=== PATIENT | female | born 1990 | race Caucasian/White ===

== ENCOUNTER → 2017-04-11 | Emergency (ER) | payer MEDICAID ==
[~2017-04-11] VITALS: Ht 152.4 cm; Wt 59.3 kg
[~2017-04-11] MED LIST: HYDR-3965 PO; NITR100C6 PO; PENI500T2 PO; PRED10TA23 PO; TRAM50TA2 PO
[2017-04-11 11:42] VITALS: BP 114/70
== END | disposition home or self-care (01) ==
LOC: ER 11:08
DX: L23.7 Allergic contact dermatitis due to plants, except food (principal); Z79.899 Other long term (current) drug therapy
CPT/HCPCS: 99283

== ENCOUNTER 2017-10-06 01:06 | Emergency (ER) | payer MEDICAID ==
[~2017-10-06] VITALS: Ht 152.4 cm; Wt 53.5 kg
[~2017-10-06 01:06] MED LIST changes: -PRED10TA23 PO
[2017-10-06 01:32] LABS: CLARITY,URINE CLEAR (Clear); COLOR,URINE STRAW (Yellow); GLUCOSE, URINE NEGATIVE (Neg); KETONES,URINE NEGATIVE (Neg); LEUKOCYTE ESTERASE ,URINE NEGATIVE (Neg); NITRITES, URINE NEGATIVE (Neg); OCCULT BLOOD,URINE NEGATIVE (Neg); PH,URINE 6.5 (4.8-8.0); PROTEIN,URINE NEGATIVE (Neg); URINE HCG NEGATIVE (NEG); UROBILINOGEN,URINE 0.2 E.U/dL (0.2-1.0)
[2017-10-06 01:33] LABS: UA COLLECTION TYPE CLN CATCH MIDSTREAM
[2017-10-06] MEDS ORDERED: metroNIDAZOLE 500mg tablet PO ONE (01:45)
[2017-10-06] MEDS ORDERED: azithromycin 250mg tablet PO ONE (01:45)
[2017-10-06] MEDS ORDERED: CefTRIAXone 250MG IM Kit w/LIDOcaine IM ONE (01:45)
[2017-10-06] MEDS ORDERED: fluconazole 100mg tablet PO ONE (01:45)
[2017-10-06] MEDS ORDERED: fluconazole 150mg tablet PO ONE (01:59)
[2017-10-06 02:28] VITALS: BP 111/80
[2017-10-07 07:25] LABS: RPR Non Reactive (Non Reactive)
[2017-10-07 11:16] LABS: HEP A AB, IGM Negative (Negative); HEPATITIS C ANTIBODY 0.1 s/co ratio (0.0-0.9)
== END 2017-10-06 02:30 | disposition home or self-care (01) ==
LOC: ER 01:07
DX: Z20.2 Contact with and (suspected) exposure to infections with a predominantly sexual mode of transmission (principal); J45.909 Unspecified asthma, uncomplicated; F12.90 Cannabis use, unspecified, uncomplicated; F15.90 Other stimulant use, unspecified, uncomplicated; F14.90 Cocaine use, unspecified, uncomplicated; F17.200 Nicotine dependence, unspecified, uncomplicated; Z79.899 Other long term (current) drug therapy
CPT/HCPCS: 36415; 81003; 81025; 86592; 86709; 86803; 87491; 87591; 96372; 99284; J0696; J3490

== ENCOUNTER 2017-11-25 02:53 | Emergency (ER) | payer MEDICAID ==
[2017-11-25 03:00] VITALS: BP 120/90
== END 2017-11-25 03:37 | disposition left against medical advice (07) ==
LOC: ER 02:53
DX: J02.9 Acute pharyngitis, unspecified (principal); Z53.21 Procedure and treatment not carried out due to patient leaving prior to being seen by health care provider

== ENCOUNTER 2018-10-25 01:37 | Emergency (ER) | payer MEDICAID ==
--- NOTE | 2018-10-25 02:14 | NUR ---
Registration reports that Pt registered with another then left lobby. will attempt to call back 2 more times.
--- NOTE | 2018-10-25 02:31 | NUR ---
DR DOAN INFORMED OF LBT
== END 2018-10-25 02:31 | disposition left against medical advice (07) ==
LOC: ER 01:38
DX: Z53.21 Procedure and treatment not carried out due to patient leaving prior to being seen by health care provider (principal)

== ENCOUNTER → 2019-07-11 | Emergency (ER) | payer MEDICAID ==
[~2019-07-11] VITALS: Ht 152.4 cm; Wt 54.5 kg
[2019-07-11 11:48] VITALS: BP 116/74
== END | disposition home or self-care (01) ==
LOC: ER 11:43
DX: M25.512 Pain in left shoulder (principal); J45.909 Unspecified asthma, uncomplicated; F41.9 Anxiety disorder, unspecified; F32.9 Major depressive disorder, single episode, unspecified; F12.90 Cannabis use, unspecified, uncomplicated; F15.90 Other stimulant use, unspecified, uncomplicated; F14.90 Cocaine use, unspecified, uncomplicated; Z72.89 Other problems related to lifestyle; Z98.890 Other specified postprocedural states; Z79.899 Other long term (current) drug therapy
CPT/HCPCS: 73030; 99283

== ENCOUNTER 2019-08-05 16:08 | Emergency (ER) | payer MEDICAID ==
[~2019-08-05] VITALS: Ht 152.4 cm; Wt 54.5 kg
[2019-08-05 16:10] VITALS: BP 132/74
== END 2019-08-05 16:56 | disposition home or self-care (01) ==
LOC: ER 16:09
DX: T14.8XXA Other injury of unspecified body region, initial encounter (principal); J45.909 Unspecified asthma, uncomplicated; F41.9 Anxiety disorder, unspecified; F32.9 Major depressive disorder, single episode, unspecified; F12.90 Cannabis use, unspecified, uncomplicated; F15.90 Other stimulant use, unspecified, uncomplicated; F14.90 Cocaine use, unspecified, uncomplicated; Z98.890 Other specified postprocedural states; Z72.89 Other problems related to lifestyle; Z79.2 Long term (current) use of antibiotics; Z79.899 Other long term (current) drug therapy; W57.XXXA Bitten or stung by nonvenomous insect and other nonvenomous arthropods, initial encounter; Y93.89 Activity, other specified; Y92.89 Other specified places as the place of occurrence of the external cause; Y99.8 Other external cause status
CPT/HCPCS: 99281

== ENCOUNTER 2020-07-04 16:29 | Emergency (ER) | payer MEDICAID ==
[~2020-07-04] VITALS: Ht 152.4 cm; Wt 69.1 kg
[2020-07-04 17:05] VITALS: BP 119/75
== END 2020-07-04 17:31 | disposition home or self-care (01) ==
LOC: ER 16:30
DX: O26.93 Pregnancy related conditions, unspecified, third trimester (principal); J45.909 Unspecified asthma, uncomplicated; F41.9 Anxiety disorder, unspecified; F32.9 Major depressive disorder, single episode, unspecified; F12.90 Cannabis use, unspecified, uncomplicated; F15.90 Other stimulant use, unspecified, uncomplicated; F14.90 Cocaine use, unspecified, uncomplicated; Z3A.32 32 weeks gestation of pregnancy; Z98.890 Other specified postprocedural states; Z72.89 Other problems related to lifestyle; Z79.2 Long term (current) use of antibiotics; Z79.899 Other long term (current) drug therapy
CPT/HCPCS: 99281; 99283

== ENCOUNTER 2022-09-17 00:08 | Emergency (ER) | payer MEDICAID ==
[~2022-09-17] VITALS: Ht 152.4 cm; Wt 54.5 kg
[2022-09-17 00:47] VITALS: BP 127/65
[2022-09-17] MEDS ORDERED: azithromycin 250mg tablet PO ONE (02:15)
[2022-09-17] MEDS ORDERED: CefTRIAXone 1000mg IM Kit (w/lidocaine diluent) IM ONE (02:15)
[2022-09-17] MEDS ORDERED: DOXYCYCLINE 100MG CAPSULE PO STA (03:46)
[2022-09-17] MEDS ORDERED: DOXY-411 PO (03:47)
[2022-09-17 04:38] LABS: HIV ANTIBODY 1&2 RAPID NON-REACTIVE (Neg)
== END 2022-09-17 04:47 | disposition home or self-care (01) ==
LOC: ER 00:09
DX: A53.9 Syphilis, unspecified (principal); A64 Unspecified sexually transmitted disease; F31.9 Bipolar disorder, unspecified; J45.909 Unspecified asthma, uncomplicated; F12.10 Cannabis abuse, uncomplicated; F15.10 Other stimulant abuse, uncomplicated; F11.10 Opioid abuse, uncomplicated; Z79.899 Other long term (current) drug therapy; Z79.1 Long term (current) use of non-steroidal anti-inflammatories (NSAID); Z79.2 Long term (current) use of antibiotics
CPT/HCPCS: 36415; 86592; 86703; 87491; 87591; 96372; 99283; J0696

== ENCOUNTER 2023-04-26 13:02 | Emergency (ER) | payer MEDICAID ==
[~2023-04-26] VITALS: Ht 152.4 cm; Wt 54.0 kg
[2023-04-26 13:45] VITALS: BP 112/74; PULSE 100; RESP 18; TEMP 98.3; O2SAT 100
== END 2023-04-26 17:59 | disposition left against medical advice (07) ==
LOC: ER 13:03
DX: F11.10 Opioid abuse, uncomplicated (principal); Z53.21 Procedure and treatment not carried out due to patient leaving prior to being seen by health care provider
CPT/HCPCS: 99281